=== PATIENT | female | born 1995 | race Two or more races ===

== ENCOUNTER 2018-07-26 10:11 | Outpatient (CLI) | payer OTHER | END 2018-07-26 10:16 | disposition home or self-care (01) | LOC: SONOGRAMA 10:11 → MAMO-SONO 10:15 → SONOGRAMA 10:16 | DX: M54.2 Cervicalgia (principal); R59.0 Localized enlarged lymph nodes ==

== ENCOUNTER 2018-08-05 10:22 | Outpatient (CLI) | payer OTHER ==
[~2018-08-05] VITALS: Ht 160 cm; Wt 43.1 kg
== END 2018-08-05 10:40 | disposition home or self-care (01) ==
LOC: OFIC 805 10:22
DX: R22.1 Localized swelling, mass and lump, neck (principal)

== ENCOUNTER 2018-08-12 12:49 | Outpatient (CLI) | payer OTHER ==
[~2018-08-12] VITALS: Ht 152.4 cm; Wt 43.1 kg
== END 2018-08-12 13:10 | disposition home or self-care (01) ==
LOC: OFIC 805 12:49
DX: R22.1 Localized swelling, mass and lump, neck (principal); M54.2 Cervicalgia; M62.838 Other muscle spasm

== ENCOUNTER 2018-08-16 09:44 | Outpatient (CLI) | payer OTHER | END 2018-08-16 16:06 | disposition home or self-care (01) | LOC: TOM 09:44 | DX: R22.1 Localized swelling, mass and lump, neck (principal) ==

== ENCOUNTER 2018-12-27 10:42 | Outpatient (CLI) | payer OTHER | END 2018-12-27 10:52 | disposition home or self-care (01) | LOC: SONOGRAMA 10:42 | DX: R22.1 Localized swelling, mass and lump, neck (principal) ==

== ENCOUNTER 2019-11-25 14:52 | Outpatient (CLI) | payer OTHER | END 2019-11-25 15:07 | disposition home or self-care (01) | LOC: RAD 14:52 | PROVIDERS: ATTEND Orthopaedic Surgery Orthopaedic Surgery of the Spine | DX: M54.2 Cervicalgia (principal); M41.20 Other idiopathic scoliosis, site unspecified ==

== ENCOUNTER 2020-03-09 14:28 | Outpatient (CLI) | payer OTHER | END 2020-03-09 14:44 | disposition home or self-care (01) | LOC: MRI 14:28 | PROVIDERS: ATTEND Orthopaedic Surgery Orthopaedic Surgery of the Spine | DX: M50.20 Other cervical disc displacement, unspecified cervical region (principal); M50.123 Cervical disc disorder at C6-C7 level with radiculopathy | CPT/HCPCS: 72141 ==

== ENCOUNTER 2023-07-06 08:23 | Outpatient (CLI) | payer OTHER | END 2023-07-06 08:38 | disposition home or self-care (01) | LOC: MRI 08:23 | PROVIDERS: ATTEND Obstetrics & Gynecology | DX: N80.9 Endometriosis, unspecified (principal); R59.1 Generalized enlarged lymph nodes; R10.2 Pelvic and perineal pain | CPT/HCPCS: 72197 ==